=== PATIENT | male | born 1985 | race Two or more races ===

== ENCOUNTER 2025-06-21 08:23 | Emergency (ER) | payer OTHER ==
[~2025-06-21] VITALS: Ht 175.3 cm; Wt 81.9 kg
[2025-06-21 08:24] VITALS: BP 113/74; PULSE 94; RESP 18; O2SAT 97
[2025-06-21] MEDS ORDERED: CEPH500C PO (09:03)
[2025-06-21] MEDS ORDERED: IBUP-1456 PO (09:04)
[2025-06-21 09:09] VITALS: TEMP 98.2
[2025-06-21] MEDS: IBUPROFEN 800 MG TAB PO ONE (09:09)
--- NOTE | 2025-06-21 09:14 | ED.PDOC ---
History of Present Illness(SKN HPI Comments A 40 YEAR OLD MALE PRESENTS TO THE ED WITH COMPLAINT OF SKIN INFECTION. PT HAS RED BUMPS NOTE DO THE LEFT INNER THIGH SINCE YESTERDAY. PT HAS NOTED REDNESS AND SWELLING BUT NO NOTED PUS BUT STATES HE IS IN PAIN. PT OTHERWISE HAS STABLE VITALS IN THE ED.PT PATIENT DENIES FEVER, CHILLS, SHORTNESS OF BREATH, CHEST PAIN, ABDOMINAL PAIN, NAUSEA, VOMITING, HEADACHE, OR OTHER COMPLAINTS. NO OTHER SYMPTOMS OR MODIFYING FACTORS AT THIS TIME. PATIENT IS ALERT, ORIENTED X 4, AND HAS STEADY GAIT. Chief Complaint: Abscess Time Seen by MD: 09:11 History of Present Illness: Nurses Notes, Medications, Allergies Allergies: Coded Allergies: NO KNOWN ALLERGIES (Unverified , 06/21/25) Home Meds Active Scripts Ibuprofen (Ibuprofen) 800 Mg Tab, 1 TAB PO TID, #30 TAB Prov:ARIS BARAHONA 06/21/25 Cephalexin Monohydrate (Cephalexin) 500 Mg Cap, 1 CAP PO QID, #40 CAP Prov:ARIS BARAHONA 06/21/25 Information Source: Patient Mode of Arrival: Ambulatory Brought in by: SELF Severity: Moderate Timing: Days Duration: Since onset, Days Prehospital treatment: None Location: Extremities (LEFT INNER THIGH ) Mechanism: Spontaneous Onset Developed: Other (RED BUMPS ) Object: None Condition of Object: None Retained Foreign Body: No Wound Type: Papule Immunization Status of Animal: Current Tetanus: UTD Associated Signs and Symptoms: Redness, Pain Past Medical History PAST MEDICAL HISTORY: Denies Surgical History: Denies all surgeries Family History Family History: Reviewed,noncontributory to illness Social History Smoker: Non-Smoker Alcohol: Denies ETOH Use Drugs: Denies Drug Use Lives In: Home Constitutional: denies: chills, diaphoresis, fatigue, fever, malaise, sweats, weakness, others EENTM: denies: blurred vision, double vision, ear bleeding, ear discharge, ear drainage, ear pain, ear ringing, eye pain, eye redness, hearing loss, mouth pain, mouth swelling, nasal discharge, nose bleeding, nose congestion, nose pain, photophobia, tearing, throat pain, throat swelling, voice changes, others Respiratory: denies: cough, hemoptysis, orthopnea, SOB at rest, shortness of breath, SOB with excertion, stridor, wheezing, others Cardiovascular: denies: chest pain, dizzy spells, diaphoresis, Dyspnea on e xertion, edema, irregular heart beat, left arm pain, lightheadedness, palpitations, PND, syncope, others Gastrointestinal: denies: abdomen distended, abdominal pain, blood streaked bowels, constipated, diarrhea, dysphagia, difficulty swallowing, hematemesis, melena, nausea, poor appetite, poor fluid intake, rectal bleeding, rectal pain, vomiting, others Genitourinary: denies: burning, dysuria, flank pain, frequency, hematuria, incontinence, penile discharge, penile sore, pain, testicle pain, testicle swelling, urgency, others Neurological: denies: dizziness, fainting, headache, left sided numbness, left sided weakness, numbness, paresthesia, pre-existing deficit, right sided numbness, right sided weakness, seizure, speech problems, tingling, tremors, weakness, others Musculoskeletal: denies: back pain, gout, joint pain, joint swelling, muscle pain, muscle stiffness, neck pain, others Integumetry: reports: change in color (L INNER THIGH), lumps; denies: bruises, change in hair/nails, dryness, laceration, lesions, rash, wounds, others Allergic/Immunocompromised: denies: Difficulty Healing, Frequent Infections, Hives, Itching, others Hematologic/Lymphatic: denies: anemia, blood clots, easy bleeding, easy bruising, swollen glands, others Endocrine: denies: excessive hunger, excessive sweating, excessive thirst, excessive urination, flushing, intolerance to cold, intolerance to heat, unexplained weight gain, unexplained weight loss, others Psychiatric: denies: anxiety, bipolar disorder, depression, hopeless, panic disorder, schizophrenia, sleepless, suicidal, others All Other Systems: Reviewed and Negative Physical Exam General Appearance: No Apparent Distress, Normal HEENT: Normal ENT Inspection, PERRL/EOMI, Pharynx Normal, TMs Normal Neck: Full Range of Motion, Non-Tender, Normal, Normal Inspection Respiratory: Chest Non-Tender, Lungs Clear, No Accessory Muscle Use, No Respiratory Distress, Normal Breath Sounds Cardiovascular: No Edema, No JVD, No Murmur, No Gallop, Normal Peripheral Pulses, Regular Rate/Rhythm Breast Exam: Deferred Gastrointestinal: No Organomegaly, Non Tender, No Pulsatile Mass, Normal Bowel Sounds, Soft Genitalia: Deferred Pelvic: Deferred Rectal: Deferred Extremities: No calf tenderness, Normal capillary refill, Normal range of motion, No pedal edema, Tender (WITH RED BUMPS ON LEFT INNER THIGH, NO OPEN WOUND SEEN. ) Musculoskeletal : Apperance: Normal Neurologic: Alert, kennel attendant II-XII nml as Tested, No Motor Deficits, Normal Affect, Normal Mood, No Sensory Deficits Cerebellar Function: Normal Reflexes: Normal Skin: Dry, Warm, Other (A FEW SMALL RED BUMPS ON LEFT INNER THIGH WITH TENDERNESS, HARDNESS AND MILD SWELLING ON LEFT INNER THIGH, NO OPEN WOUND AND DRAINAGE. ) Peripheral Pulses: 2+ carotid (R), 2+ carotid (L), 2+ dorsalis pedis (R), 2+ dorsalis pedis (L) Lymphatic: No Adenopathy Was a procedure done? Was a procedure done?: No Differential Diagnosis (INTG) Differential Diagnosis: Puncture Wound Differential Diagnosis: Abscess, Cellulitis, Impetigo, Intertrigo, Other Abscess: Abscess, Bacteremia, Cellulitis X-Ray, Labs, Meds, VS Vital Signs Date Time Temp Pulse Resp B/P (MAP) Pulse Ox O2 Delivery O2 Flow Rate FiO2 06/21/25 09:09 98.2 06/21/25 08:24 98.0 94 18 113/74 97 98.0 Current Medications Medications (Trade) Dose Ordered Sig/Beulah Route Start Time Stop Time Status Last Admin Ceftriaxone Sodium (Rocephin) 1,000 mg ONCE ONCE IM 06/21/25 09:15 06/21/25 09:16 DC 06/21/25 09:18 Ibuprofen (Motrin Tablet) 800 mg ONCE ONCE PO 06/21/25 09:15 06/21/25 09:16 DC 06/21/25 09:09 X-Ray, Labs, Meds, VS Comment COURSE: EXTERNAL MEDICAL RECORDS REVIEWED: [NONE] INDEPENDENT HISTORIANS: [NONE] SOCIAL DETERMINANTS OF HEALTH: [NONE] LABS ORDERED: NONE REVIEWED AND INTERPRETED RESULTS: NONE IMAGING ORDERED: NONE TREATMENTS ORDERED: ROCEPHIN 1GM IM AND MOTRIN 800MG PO PROCEDURES PERFORMED: NONE CRITICAL CARE TIME: NONE I HAVE DISCUSSED THE PATIENT WITH THE ATTENDING PHYSICIAN, DR. GRACE, HE AGREES WITH THE PATIENT'S PLAN OF CARE AND DISPOSITION. BASED ON HISTORY OF PRESENT ILLNESS, AND PHYSICAL EXAM, PATIENT WILL BE DISCHARGED HOME. DISCUSSED PLAN FOR DISCHARGE HOME WITH RX [KEFLEX AND MOTRIN ]. MEDICATION WARNINGS GIVEN. SHARED DECISION MAKING: DISCUSSED WITH PATIENT THAT THEIR WORKUP WAS NORMAL. PATIENT INSTRUCTED TO FOLLOW UP WITH PRIMARY CARE PROVIDER IN 1-2 DAYS FOR RE- EVALUATION OF SYMPTOMS. PATIENT VERBALIZES UNDERSTANDING TO RETURN TO ED FOR NEW OR WORSENING SYMPTOMS OR IF FOLLOW UP WITH PCP CANNOT BE OBTAINED. PATIENT FEELS COMFORTABLE GOING HOME AT THIS TIME. ALL QUESTIONS ADDRESSED AT TIME OF DISCHARGE. Time of 1ST Reevaluation: 09:30 Reevaluation 1ST: Improved Patient Education/Counseling: Diagnosis, Treatment, Need For Follow Up Family Education/Counseling: Diagnosis, Treatment, No Family Present Medical Screening: No EMC Exist At This Time SEPSIS Sepsis Screen Date sepsis recognized/suspect: Jun 21, 2025 Time Sepsis recognized/suspect: 825 Recent Procedure: No On Antibiotic Therapy: No Respiratory Rate >20: No Heart Rate >90: No Temp<36 C (96.8 F) or >38.3 C: No SBP <90 or MAP <65 mmHG: No New Acute Mental Status Change: No Is the patient on CPAP, BIPAP,: No Vital Signs Date Time Temp Pulse Resp B/P (MAP) Pulse Ox O2 Delivery O2 Flow Rate FiO2 06/21/25 09:09 98.2 06/21/25 08:24 98.0 94 18 113/74 97 98.0 Medications Medications Dose Ordered Sig/Beulah Route Start Time Stop Time Status Last Admin Dose Admin Ceftriaxone Sodium 1,000 mg ONCE ONCE IM 06/21/25 09:15 06/21/25 09:16 DC 06/21/25 09:18 Ibuprofen 800 mg ONCE ONCE PO 06/21/25 09:15 06/21/25 09:16 DC 06/21/25 09:09 Departure 1 Departure Time of Disposition: :30 Impression: Primary Impression: Soft tissue infection Disposition: 01 HOME / SELF CARE / HOMELESS Condition: Stable Additional Instructions: INSTRUCTIONS: FOLLOW-UP WITH PCP IN 1 TO 2 DAYS. TAKE MEDICATIONS PRESCRIBED. RETURN TO ED FOR ANY NEW OR WORSENING SYMPTOMS. e-Prescriptions Ibuprofen (Ibuprofen) 800 Mg Tab 1 TAB PO TID, #30 TAB Prov: ARIS BARAHONA 06/21/25 Cephalexin Monohydrate (Cephalexin) 500 Mg Cap 1 CAP PO QID, #40 CAP Prov: ARIS BARAHONA 06/21/25 Discharged With: Self Critical Care Note Critical Care Time?: No Stability Stability form required: No Heart Score Heart Score: Heart Score Response (Comments) Value History N/A 0 EKG N/A 0 Age N/A 0 Risk Factors N/A 0 Troponin N/A 0 Total 0 I personally scribed for ARIS BARAHONA ([email or web address]) on 06/21/25 at 09:14. Electronically submitted by Austin Jama ([email or web address]). ARIS BARAHONA Jun 21, 2025 09:14
[2025-06-21] MEDS: cefTRIAXone SOD 1,000 MG VL IM ONE (09:18)
== END 2025-06-21 09:30 | disposition home or self-care (01) ==
LOC: ER 08:23
DX: L08.9 Local infection of the skin and subcutaneous tissue, unspecified (principal)
CPT/HCPCS: 96372; 99283; J0696